=== PATIENT | female | born 1990 | race American Indian/Alaskan Native ===

== ENCOUNTER 2018-04-27 13:38 | Outpatient (CLI) | payer OTHER ==
--- NOTE | 2018-04-28 06:48 | Ultrasound Report ---
FINAL REPORT PROCEDURE: US TRANSVAGINAL and transabdominal TECHNIQUE: Real-time transabdominal sonography in multiple planes of the pelvis was performed. The pelvic structures, especially the ovaries were not optimally visualized. Transvaginal sonography was then performed to better evaluate the structures and/or abnormalities described below with image documentation. CPT 37339 and 42102 HISTORY: DEEP DYSPAREUNIA, HISTORY OF OVARIAN CYST COMPARISON: No prior studies are available for comparison. FINDINGS: UTERUS Size: 8.2 x 4.3 x 4.9 cm. Endometrial thickness: 10 mm. Orientation: anteverted. Cervix: Normal. Fibroids/masses: None. RIGHT Ovary: 3.6 x 2.4 x 3.2 cm. Appearance: Normal. LEFT Ovary: 3 x 2.2 x 2.5 cm. Appearance: Normal. Pelvic fluid: None. Other: None. IMPRESSION: Normal Examination
--- NOTE | 2018-04-28 06:49 | Ultrasound Report ---
FINAL REPORT PROCEDURE: US TRANSVAGINAL and transabdominal TECHNIQUE: Real-time transabdominal sonography in multiple planes of the pelvis was performed. The pelvic structures, especially the ovaries were not optimally visualized. Transvaginal sonography was then performed to better evaluate the structures and/or abnormalities described below with image documentation. CPT 43415 and 44358 HISTORY: DEEP DYSPAREUNIA, HISTORY OF OVARIAN CYST COMPARISON: No prior studies are available for comparison. FINDINGS: UTERUS Size: 8.2 x 4.3 x 4.9 cm. Endometrial thickness: 10 mm. Orientation: anteverted. Cervix: Normal. Fibroids/masses: None. RIGHT Ovary: 3.6 x 2.4 x 3.2 cm. Appearance: Normal. LEFT Ovary: 3 x 2.2 x 2.5 cm. Appearance: Normal. Pelvic fluid: None. Other: None. IMPRESSION: Normal Examination
== END 2018-04-27 13:39 | disposition home or self-care (01) ==
LOC: US 13:38
PROVIDERS: ATTEND Nurse Practitioner Family
DX: N94.12 Deep dyspareunia (principal); Z87.42 Personal history of other diseases of the female genital tract
CPT/HCPCS: 76830; 76856

== ENCOUNTER 2018-08-24 10:43 | Day surgery (SDC) | payer OTHER ==
[2018-08-24] MEDS ORDERED: NACL 0.9% 1000 ML 1,000 ML IV SCH (12:00)
--- NOTE | 2018-08-24 13:24 | Anesthesia Day of Surgery ---
Anesthesia Day of Surgery - Day of Surgery Patient Examined: Yes Patient H&P Reviewed: Yes Patient is NPO: Yes
--- NOTE | 2018-08-24 13:24 | Anesthesia Consultation ---
Anesthesia Consult and Med Hx Date of service: 08/24/18 - Airway Anesthetic Teeth Evaluation: Good (braces) ROM Head & Neck: Adequate Mental/Hyoid Distance: Adequate Mallampati Class: Class II Intubation Access Assessment: Probably Good - Pulmonary Exam CTA: Yes - Cardiac Exam Cardiac Exam: RRR - Pre-Operative Health Status ASA Pre-Surgery Classification: ASA2 Proposed Anesthetic Plan: MAC - Other Systems Hx Obesity: Yes
[2018-08-24] MEDS ORDERED: VERSED ONE (13:31)
[2018-08-24] MEDS ORDERED: DIPRIVAN 10 MG/ML IV ONE (13:31)
--- NOTE | 2018-08-24 13:53 | Operative Report ---
Operative Report Operative Report: Date: 08/24/2018 Operative Report: Date of procedure: 08/24/2018 Procedure: Esophagogastroduodenoscopy with multiple mucosal biopsies Attending physician: Brady Bridges MD Plant Tour Guide: Brady Bridges MD Indication: Patient is a 58-year-old female who presented with a history of epigastric pain GERD, heartburn and indigestion . An upper endoscopy is done to assess patient and check for healing of the ulcers so that treatment may be directed based on the findings. Consent: Informed consent was obtained after advising the patient and family regarding nature of this procedure, its indications, potential benefits as well as possible complications including but not limited to bleeding perforation and adverse reaction to medication, infection as well as other cardiopulmonary complications. An informed written and verbal consent was then obtained after due opportunity was provided for questions and answers. Monitoring: Patient was monitored continuously with pulse oximetry and electrocardiographic recordings as well as blood pressure recordings. Vital signs remained stable throughout this procedure with no untoward events. Preoperative assessment: Patient was assessed immediately prior to this procedure for capacity to tolerate monitored anesthesia care and moderate sedation as well as general anesthesia. Patient's ASA classification is 2, Mallampati class is 2, Hyomental distance is 3. Instrument: Cardiion video endoscope Medications: Propofol given intravenously in divided doses. For details please refer to anesthesia records. Description of procedure: Patient was placed in the left lateral decubitus position after achieving sedation, the endoscope was introduced into the esophagus under direct vision. It was then advanced beyond the esophagus into the stomach and then beyond the stomach into the duodenum and to the second portion of the duodenum. It was subsequently withdrawn with careful inspection of all mucosal surfaces with the following findings. Findings: Esophagus was normal. Patient had an iregular Z line at 39 cm. There was a 1-2 cm sliding hiatal hernia seen on entry into the stomach. There was erythema and erosions in the gastric antrum. Biopsies of the antrum were obtained for histopathology. Patient has severe erosive duodenitis with a small diminutive duodenal bulb ulcer. The ulcer was clean-based. Impression Diminutive Hiatal hernia. Gastric antral erythema. Severe duodenitis Duodenal bulb ulcer. Plan: Follow pathology report. Continue treatment with proton pump inhibitors. Direct additional treatment based on the pathology report.
--- NOTE | 2018-08-24 13:54 | Discharge Summary ---
Short Stay Discharge Plan Activity: advance as tolerated Weight Bearing Status: Weight Bear as Tolerated Diet: regular Follow up with: GEORGINA ISRAEL FNP-BC [Primary Care Provider] - 7 Days
[2018-08-24 14:15] VITALS: BP 146/100
== END 2018-08-24 10:44 | disposition home or self-care (01) ==
LOC: GIO 10:43
PROVIDERS: ATTEND Internal Medicine Gastroenterology
DX: K29.50 Unspecified chronic gastritis without bleeding (principal); K30 Functional dyspepsia; K44.9 Diaphragmatic hernia without obstruction or gangrene; K29.80 Duodenitis without bleeding; K26.9 Duodenal ulcer, unspecified as acute or chronic, without hemorrhage or perforation; K21.9 Gastro-esophageal reflux disease without esophagitis; E66.9 Obesity, unspecified; Z68.41 Body mass index [BMI] 40.0-44.9, adult; Z79.899 Other long term (current) drug therapy
CPT/HCPCS: 43239; 81025; 88305; 88342; J2250; J2704; J7030